=== PATIENT | female | born 1970 | race African-American/Black ===

== ENCOUNTER 2017-07-08 20:27 | Emergency (ER) | payer OTHER ==
[~2017-07-08] VITALS: Ht 165.1 cm; Wt 90.7 kg
[~2017-07-08 20:27] MED LIST: CHLORPHENIRAMINE4 MG ORAL; IBUPROFEN600 MG ORAL; MACROBID100 MG ORAL; NKM; PREDNISONE20 MG ORAL; PROMETHAZINE-D118 ML ORAL; TAMIFLU75 MG ORAL; TRAMADOL HCL50 MG ORAL; VICODIN 5-5001 EACH PO
[2017-07-08 20:40] VITALS: BP 140/88
[2017-07-08] MEDS ORDERED: AMBIEN5 MG ORAL (20:40)
[2017-07-08] MEDS ORDERED: HYDROCODON-ACE1 EA15 ORAL (21:32)
[2017-07-08] MEDS ORDERED: IBUPROFEN600 MG ORAL (21:32)
[2017-07-08] MEDS ORDERED: VALIUM5 MG ORAL (21:32)
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
[2017-07-08 21:44] VITALS: BP 120/80
== END 2017-07-08 21:47 | disposition home or self-care (01) ==
LOC: EMR 21:10
DX: S16.1XXA Strain of muscle, fascia and tendon at neck level, initial encounter (principal); S39.012A Strain of muscle, fascia and tendon of lower back, initial encounter; V43.52XA Car driver injured in collision with other type car in traffic accident, initial encounter; Y92.410 Unspecified street and highway as the place of occurrence of the external cause
CPT/HCPCS: 99283

== ENCOUNTER 2017-11-23 19:43 | Emergency (ER) | payer OTHER ==
[~2017-11-23] VITALS: Ht 162.6 cm; Wt 95.3 kg
[~2017-11-23 19:43] MED LIST changes: +AMBIEN5 MG ORAL; +HYDROCODON-ACE1 EA15 ORAL; +VALIUM5 MG ORAL
[2017-11-23] MEDS ORDERED: CYCLOBENZAPRINE10 MG ORAL (19:59)
[2017-11-23 20:30] VITALS: BP 151/74
[2017-11-23] MEDS ORDERED: Dexamethasone Elixir 0.25mg/2.5ml ORAL ONE (20:30)
[2017-11-23] MEDS ORDERED: NORCO 5-325 TA1 EACH ORAL (20:39)
[2017-11-23] MEDS ORDERED: LIDOCAINE700 M1 TP (20:39)
[2017-11-23 20:41] LABS: APPEARANCE,URINE CLEAR; BILIRUBIN, URINE NEGATIVE (NEGATIVE); COLOR,URINE PALE YELLOW; GLUCOSE, URINE (UA) NEGATIVE (NEGATIVE); KETONES,URINE NEGATIVE (NEGATIVE); LEUKOCYTE ESTERASE ,URINE NEGATIVE (NEGATIVE); NITRITE,URINE NEGATIVE (NEGATIVE); PH,URINE 7 (4.5-8.0); PROTEIN,URINE NEGATIVE (NEGATIVE); UROBILINOGEN,URINE 1 MG/DL (0.0-1.0)
[2017-11-23] MEDS ORDERED: Norco 5mg/325mg tab ORAL SCH (21:15)
[2017-11-23] MEDS ORDERED: Norco 5mg/325mg tab ORAL ONE (21:15)
[2017-11-23 21:20] VITALS: BP 151/74
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
== END 2017-11-23 21:20 | disposition home or self-care (01) ==
LOC: EMR 20:19
DX: M48.02 Spinal stenosis, cervical region (principal); M51.9 Unspecified thoracic, thoracolumbar and lumbosacral intervertebral disc disorder
CPT/HCPCS: 81003; 82962; 99284; J8540